=== PATIENT | female | born 1980 | race Asian ===

== ENCOUNTER 2021-08-14 10:35 | Outpatient (CLI) | payer OTHER | END 2021-08-14 10:36 | disposition home or self-care (01) | LOC: SCSRAD 10:35 | PROVIDERS: ATTEND Nurse Practitioner Family | DX: M54.50 Low back pain, unspecified (principal); M53.3 Sacrococcygeal disorders, not elsewhere classified; M51.37 Other intervertebral disc degeneration, lumbosacral region | CPT/HCPCS: 72100 ==